=== PATIENT | female | born 1935 | race Two or more races ===

== ENCOUNTER 2018-11-28 11:59 | Observation (INO) | payer MEDICARE, OTHER ==
[~2018-11-28] VITALS: Ht 149.9 cm; Wt 42.4 kg
[2018-11-28] MEDS ORDERED: SYMBICORT 80-10.2 GM INH (12:43)
[2018-11-28] MEDS ORDERED: LEVOTHYROXINE75 MCG PO (12:44)
[2018-11-28] MEDS ORDERED: LOSARTAN-HCTZ1 EAC1 PO (12:44)
[2018-11-28] MEDS ORDERED: METOPROLOL SUCC50 MG PO (12:44)
[2018-11-28] MEDS ORDERED: ATROVENT HFA12.9 GM INH (17:30)
[2018-11-28] MEDS ORDERED: ASPIR-LOW81 MG PO (17:30)
--- NOTE | 2018-11-28 18:20 | NUR ---
PT TO FLOOR AT 1705 FOR ER VIA STRETCHER, ACCOMPANIED BY SHANA DAVIS. PT DENIES PAIN. REPORTS THAT SHE HAS HAD A LOW APETITE SINCE SHE GOT ILL APROXIMATELY 1 WEEK AGO, BUT DID EAT A SALAD AND DRINK TEA AND CHICKEN BROTH FOR DINNER. VOIDED 150 ML CLEAR YELLOW URINE IN HAT, DRIBBLED ON PAD IN UNDERWEAR. PAD CHANGED. PT AMBULATED WITH MINIMAL ASSIST TO AND FROM BATHROOM. IS UNSTEADY ON FEET.
--- NOTE | 2018-11-28 18:28 | NUR ---
PT TO FLOOR FROM ER THIS EVENING. PT IS ALERT, ORIENTED X 4. VOIDED 150 ML CLEAR YELLOW URINE IN HAT, SMALL AMOUNT INCONTINENCE IN PAD. PT SLIGHTLY UNSTEADY ON FEET, STANDBY TO MINIMAL ASSIST WHEN AMBULATING. DENIES PAIN. IS ON 2L O2 VIA NC, SATURATION LEVEL GREATER THAN 90%. HAS PRODUCTIVE COUGH, GREEN SPUTUM, AND LUNG CAMPBELL COARSE THROUGHOUT. HAS LR INFUSING AT 100 ML/HR.
--- NOTE | 2018-11-28 19:23 | NUR ---
RECIEVED REPORT FROM ROSAURA SALDANA. PATIENT LAYING AWAKE IN BED. IV FLUIDS INFUSING PER MAR ORDER. BED ALARM ON FOR ALEXIS. CALL LIGHT WITHIN REACH. NO MORE NEEDS AT THIS TIME. DROPLET PRECAUTIONS.
--- NOTE | 2018-11-28 21:41 | NUR ---
ASSESSMENT COMPLETE, REFER TO ASSESSMENT. PATIENT DENIES CHEST PAIN, SOB, OR DIFFICULTY BREATHING. IV FLUIDS INFUSING PER MAR ORDER. PATIENT EXHIBITED PRODUCTIVE COUGH, LIGHT YELLOW-LIGHT GREEN SPUTUM IN COLOR. ACAPELLA AT BEDSIDE, PATIENT DEMONOSTRATED UNDERSTANDING. PATIENT VERY DROWSY/SLEEPY DURING ASSESSMENT, REQUIRED ENCOURAGMENT TO AWAKE UP, HEAD OF BED ELEVATED. FRESH WATER PROVIDED TO PATIENT. PATIENT BECAME ALERT TO TAKE SCHEDULED MEDICATIONS. BED ALARM ON FOR SAFETY. PATIENT CALL LIGHT WITHIN REACH. PATIENT DENIES ANY NEEDS AT THIS TIME.
--- NOTE | 2018-11-28 21:43 | EKG ---
[facility] [address] [facility] [address] [place], [place] [address] Signed Poor data quality, interpretation may be adversely affected Normal sinus rhythm Nonspecific ST and T wave abnormality Abnormal ECG No previous ECGs available Confirmed by DIRK GALEANO DO ([id number]) on 11/28/2018 9:43:35 PM Electronically Signed By: DIRK GALEANO DO 11/28/18 2143 PATIENT NAME: CYNDIANABELLAADELINE NESS Electrocardiogram DATE OF : 37 PHYSICIAN: DIRK GALEANO DO REPORT #: [id number] REPORT IS CONFIDENTIAL AND NOT TO BE RELEASED WITHOUT AUTHORIZATION
--- NOTE | 2018-11-28 23:49 | NUR ---
ROUNDED ON PATIENT RESTING IN BED WITH EYES CLOSED, RESPIRATORY RATE IS EVEN AND UNLABORED. CALL LIGHT WITHIN REACH. IV FLUIDS INFUSING PER MAR ORDER. BED ALARM ON FOR SAFEY.
--- NOTE | 2018-11-29 02:20 | NUR ---
ASSESSMENT COMPLETE, REFER TO ASSESMENT. SBA PATIENT TO RESTROOM. PATIENT PRODUCING LIGHT YELLOW TO LIGHT GREEN, THICK SPUTUM. ACAPELLA AT BEDSIDE. PATIENT DENIES CHEST OR DIFFICULTY BREATHING. HOWEVER, PATIENT REPORTS SOB WITH EXTERTION, HOWEVER SOB RESOLVES AFTER REST. 1.5L VIA NC. BED ALARM ON FOR SAFETY. VITAL ASSESSED AND RECORDED. INTAKE AND OUTPUT ASSESSED AND RECORDED.
--- NOTE | 2018-11-29 02:59 | NUR ---
CHECKED ON IV ALARMING, PT COUGHING OFF AND ON, REQUESTED FRESH ICE WATER, RECEIVED. 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
--- NOTE | 2018-11-29 06:15 | NUR ---
ASSESSMENT COMPLETE, REFER TO ASSESSMENT. MEDICATION ADMINTERED PER MAR ORDER. PATIETN REPORTS PRODUCING THICK "CREAM" COLORED SPUTUM. IV FLUIDS INFUSING PER MAR ORDER. PATIENT REPORTS SOB WITH AMBULATION, NO SOB AT THIS TIME. PATIENT DENIES CHEST PAIN OR SOB. ACAPELLA AT BEDSIDE. BED ALARM ON FOR SAFETY. CALL LIGHT WITHIN REACH. NO MORE NEEDS AT THIS TIME.
--- NOTE | 2018-11-29 07:15 | NUR ---
PT IN BED AWAKE, ALERT. ON 1.5L O2 VIA NC. RECIEVED BEDSIDE REPORT FROM SHANA PHELPS.
--- NOTE | 2018-11-29 08:30 | NUR ---
Obtained BP and pulse prior to adminisration of morning meds. Pt was alert and oriented x3 and answers questions appropriately. Pt was in bed eating breakfast independently. Pt asked what her 02 sat level was and expressed concern about being taken off of 1.5 L O2. She stated "I don't want to get dependent on it." Told pt I would let RN know of her concern. RN aware.
--- NOTE | 2018-11-29 08:51 | NUR ---
PATIENT REFUSED TO GET UP TO HER CHAIR FOR BREAKFAST. SHE SAYS LATER SHE WOULD SHOWER LATER. WARM WASH CLOTH OFFERED.
--- NOTE | 2018-11-29 09:00 | NUR ---
Administered PO meds. Pt was able to swallow independently and without difficulty. O2 was turned off and pt was placed on RA. Pt appeared to be tolerating well and had an O2 sat of 93% on RA. Will continue to monitor O2 levels.
--- NOTE | 2018-11-29 09:11 | NUR ---
PT ATE 50% OF BREAKFAST, DRANK 340 ML FLUIDS WITH BREAKFAST. DENIED NAUSEA, DENIED PAIN. TITRATED OFF 1.5L O2 TO RA, OXYGEN SATURATION LEVEL 93%, WILL CONTINUE TO MONITOR.
--- NOTE | 2018-11-29 09:40 | NUR ---
Obtained VS. While in pt room, O2 sat dropped to 89%. RN was informed. Pt was put on 1 L O2. O2 sat was 93% on 1 L O2.
--- NOTE | 2018-11-29 09:53 | NUR ---
PT DESATURATED TO 89% ON RA, PLACED ON 1L O2 VIA NC, OXYGEN SATURATION LEVEL NOW 92% ON 1L O2.
--- NOTE | 2018-11-29 10:00 | NUR ---
Pt remains on 1 L O2 sat of 97%. No respiratory distress noted.
--- NOTE | 2018-11-29 10:06 | NUR ---
NITO, PHYSICAL THREAPIST, NOTIFIED THIS RN THAT SHE HAD CLEARED PT. NOTIFIED DR. BURNHAM. ALSO NOTIFIED DR. BURNHAM THAT PT STATED THAT HE WANTS TO DISCHARGE TO HOME TODAY. DR. BURNHAM STATED THAT HE WILL DISCHARGE PT TODAY.
--- NOTE | 2018-11-29 10:50 | NUR ---
Pt in chair reading. O2 sat of 98% on 1 L O2. Pt request lunch menue. Pt states no other needs at this time. Call light in reach.
--- NOTE | 2018-11-29 12:30 | NUR ---
PT IN BED. PROVIDED WITH FRESH ICE WATER. PT ON 1L O2 VIA NC, SAT 95%. PERSONAL SUPPLIES AND CALL LIGHT IN REACH.
--- NOTE | 2018-11-29 14:18 | NUR ---
Assisted pt to bathroom. Pt had weak, steady gait. Pt had unmeasurable loose stool. Work of breathing increased with ambulation. Pt had an O2 sat of 89% on room air for ambulation when returning to bed. O2 sat inreased to 99% on 1L O2. Call light in reach. Pt denies c/o.
--- NOTE | 2018-11-29 15:04 | NUR ---
DR. GALEANO IN TO ROUND ON PT. PT REPORTS HAVING LOOSE STOOLS X 4.
--- NOTE | 2018-11-29 16:35 | NUR ---
PT IN BED, RECIEVED ARMANDO TX FROM RT CARLOS. IV SALINE LOCKED AFTER MAGNESIUM IV INFUSION COMPLETE. PT HAS PERSONAL SUPPLIES AND CALL LIGHT IN REACH. DENIED NEEDS.
--- NOTE | 2018-11-29 17:16 | NUR ---
PT'S LUNG SOUNDS COARSE WITH WHEEZES THROUGHOUT. PT HAS A PRODUCTIVE COUGH. IS ON 1L O2 VIA NC TO MAINTAIN OXYGEN SATURATION LEVEL AT OR GREATER THAN 90%. SHORT OF BREATH WITH EXERTION. URINE OUTPUT QUANTITY SUFFICIENT. PT HAS HAD MULTIPLE LOOSE STOOLS, STARTED LOPERAMIDE. MAGNESIUM LEVEL 1.4, IV MAGNESIUM 3 GM GIVEN. IV NOW SALINE LOCKED. PT STARTED SCHEDULED NEB TX. UP WITH 1 PERSON STANDBY ASSIST. ALERT, ORIENTED X 4. NO C/O PAIN NOTED OR REPORTED.
--- NOTE | 2018-11-29 18:28 | NUR ---
PT ON 1L O2 VIA NC, OXYGEN SATURATION LEVEL 95%, TITRATED TO RA, SAT 92%. WILL CONTINUE TO MONITOR. PERSONAL SUPPLIES AND CALL LIGHT IN REACH. PT HAD CLEAR LIQUIDS FOR DINNER, STATED THAT SHE DID NOT WANT SOLIDS BECAUSE SHE HAD HAD LOOSE STOOLS THIS SHIFT. OFFERED CLEAR ENSURE, PT DECLINED.
--- NOTE | 2018-11-29 19:13 | NUR ---
RECIEVED CHANGE OF SHIFT REPORT FROM LIBIA SALDANA. PATIENT RESTING AWAKE IN BED. 0.5L VIA NC. NO SIGNS OF DISTRESS. WHITE BOARD UPDATED. SALINE LOCKED.
--- NOTE | 2018-11-30 05:17 | NUR ---
PATIENT SLEPT WELL THROUGHOUT THE NIGHT. O2 TITRATED VIA NC TO MAINTAIN O2 SATS PER ORDER. 1PERSON SBA. BED ALARM FOR SAFETY. ACAPELLA AT BEDSIDE. REGULAR DIET. PATIENT EXPERIENCES SOB WITH AMBULATION. SALINE LOCKED. SCHEDULED NEB TREATMENTS PER NOV ORDER. NO PRN PAIN MEDICATION THIS SHIFT.
--- NOTE | 2018-11-30 06:10 | NUR ---
ROUNDED ON PATIENT FOR MEDICATION ADMINISTRATION PER NOV ORDER. MED SPEC IN ROOM WITH PATIENT TO ASSIST PATIENT TO AMBULATE TO RESTROOM AT THIS TIME. NO MORE NEEDS AT THIS TIME.
--- NOTE | 2018-11-30 07:04 | NUR ---
Bedside report received from SHANA Peters. Pt resting supine in bed, a/o x4 and denies needs/concerns. pt currently satting 92% on 1lpnc and denies sob. RR 20, even and unlabored. Call light and h20 in reach.
--- NOTE | 2018-11-30 08:30 | NUR ---
PT was done with breakfast so tray was removed. 70% of meal eaten. PT reported that she was "scared to eat too much" due to several episodes of loose stool yesterday. She is resting in bed now with call light within reach. No complaints or concerns at this time.
--- NOTE | 2018-11-30 09:14 | NUR ---
PATIENT RESTING IN BED. VITAL SIGNS AND I&O DONE. CALL LIGHT WITHIN REACH. NO OTHER NEEDS AT THIS TIME
[2018-11-30] MEDS ORDERED: DOXAZOSIN MESYLA4 MG PO (09:33)
[2018-11-30] MEDS ORDERED: VENTOLIN HFA18 GM INH (09:34)
--- NOTE | 2018-11-30 09:34 | NUR ---
MED REC COMPLETE
--- NOTE | 2018-11-30 10:15 | NUR ---
PT RESTING SUPINE IN BED WATCHING TV, PT DENIES PAIN, NAUSEA OR SOB AND IS SATTING 97% ON ROOM AIR. PT ASSESSMENT COMPLETED. PT DENIES NEEDS OR CONCERNS AT THSI TIME. CALL LIGHT AND H20 IN REACH.
--- NOTE | 2018-11-30 11:22 | NUR ---
PT CALL LIGHT ALERTED. PT REQUESTED TO USE RESTROOM. ONE PERSON STANDY ASSIST TO TRANSFER OUT OF BED AND WALK TO THE BATHROOM AND BACK. TOLERATED ACTIVITY WELL. REPORTED NO DIZZINESS BUT WAS MILDLY TACHYPNIC AFTER RETURNING TO THE BED. 02 SATS DROPPED TO 86% BUT RETURNED TO 92 AFTER SEVERAL DEEP BREATHS. NO OTHER COMPLAINTS OR CONCERNS AT THIS TIME. CALL LIGHT IN REACH.
--- NOTE | 2018-11-30 12:02 | NUR ---
PT SITTING ON THE EDGE OF BED EATING LUNCH. VISITORS IN THE ROOM NOW. DENIES ANY NEEDS OR CONCERNS AT THIS TIME. CALL LIGHT AND WATER WITHIN REACH.
--- NOTE | 2018-11-30 12:59 | NUR ---
PT SITTING IN CHAIR, RM DARKENED, NO TV BUT PT WAS AWAKE. SHE IS VERY POLITE AND DOESNOT WANT TO FEEL LIKE SOMEONE IS HAVING TO FUSS OVER HER.I TUNED THE TV TO THE MUSIC CHANNEL-SHE WAS PLEASED.PT ALSO MENTIONED THAT SHE IS WORRIED ABOUT HER WHO IS AT [facility]. EXTENDED A BLESSING, WILL FOLLOW NEEDED
--- NOTE | 2018-11-30 14:51 | NUR ---
Pt up ambulating in fiore with P.T. and fww. Pt appears to be tolerating well. Respirations even and unlabored and pt's speech is clear.
--- NOTE | 2018-11-30 17:58 | NUR ---
PT is sitting supine in her bed. Assisted with redressing IV site. No phlebitis present. No other complaints at this time. Call light within reach.
--- NOTE | 2018-11-30 18:29 | NUR ---
SN Shift Summary: PT lung sounds crackles and expiratory wheezes throughout. No c/o SOB. PT O2 sats remained at 92 or above without oxygen all day. O2 sats dropped to 86 when ambulating to bathroom x2 but returned to 92 or above when resting. Cough was productive with small amounts of thick secretions. No episodes of urinary incontinence or loose stools today. Patient received a shower with standby assist and tolerated well. IV flushed with NS with no complications and was redressed with tape. No complaints of pain reported today. PT states that she was less weak and fatigued than yesterday. No further concerns at this time.
--- NOTE | 2018-11-30 18:44 | NUR ---
PT RESTING SUPINE IN BED, STATES SHE HAS HAD A GOOD APPETITE TODAY AND HAS TOLERATED HER MEALS WELL WITH NO NAUSEA, PT REMAINS SL'D AND DENIES SOB ON ROOM AIR WITH O2 SAT AT 95% AND RR 18. P TSTATES "I FEEL A LOT BETTER TODAY, WHAT TIME ARE DISCHARGES USUALLY?". PT INFORMED THAT DISCHARGE TIME VARY WIDELY BUT OFTEN LAND NEAR MIDDAY BETWEEN 10AM AND 2PM. PT STATES SHE STILL GETS SOME SHORTNESS OF BREATH WITH EXERTION BUT HAS TOLERATED ROOM AIR AT REST ALL DAY. PT DOES FEEL SHE COULD BENAFIT FROM A BREATHING TREATMENT AT THIS TIME THOUGH DENIES SOB. KAREY FROM RT NOTIFIED OF PT'S REQUEST. INTERMITTANT COUGH PERSISTS AND PT REMAINS ON DROPLET PRECAUTIONS. TODAY IS DAY TWO OF TAMIFLU TREATMENT. PT REMAINS SBA WITH FWW AND TOLERATED EXERCISE WITH PT TODAY.SCHEDULED NEB TX'S AND PRN AVAILABLE.
--- NOTE | 2018-11-30 19:05 | NUR ---
SHIFT REPORT RECEIVED FROM DAYSWAFT SHANA LOPEZ. PT RESTING IN BED, CPOX IN PLACE. PT ON RA, DENIES NEEDS. O2 SAT AND HR WNL. CALL LIGHT IN REACH.
--- NOTE | 2018-11-30 20:35 | NUR ---
THIS RN IN ROOM TO COMPLETE VS. BP RESULT OF 184/83, MAP 109 ON RIGHT ARM. BP RESULT OF 172/65, MAP 92 ON LEFT ARM. PT'S SBP FOR 1800 VS WAS IN 170'S. CPOX HR RESULT ANYWHERE BETWEEN 54-59. THIS RN COMPLETED APICAL PULSE, RESULT 57. PT DENIES DIZZINESS. DR GALEANO MADE AWARE OF ALL FINDINGS ABOVE. VERBAL ORDER READ BACK TO HOLD SCHEDULED METOPROLOL. AWAITING FOR DR GALEANO TO PUT IN NEW ORDERS FOR CARDURA. THIS RN ASKED ABOUT HOLDING PARAMETERS REGARDING CARDIAC MEDICATIONS.VERBAL ORDER READ BACK TO HOLD CARDURA FOR SBP<100 AND TO HOLD METOPROLOL FOR SBP<100 AND/OR HR<60.
--- NOTE | 2018-11-30 21:29 | NUR ---
RECHECKED B\P PER SHANA LICONA
--- NOTE | 2018-11-30 21:30 | NUR ---
VSS, SCHEDULED MEDICATIONS GIVEN (SEE EMAR). ASSESSMENT COMPLETE. PT A/OX3, DENIES PAIN. PT DENIES DIZZINESS. LUNG SOUNDS COURSE, PT USING ACAPELLA AT THIS TIME. O2 SAT WNL, PT ON RA. PT REPORTS THAT CREAM COLORED SPUTUM IS "GETTING BETTER AND IS THINNER". PT UP SBA TO BATHROOM TO VOID. PT RETURNED TO BED, DENIES FURTHER NEEDS. CALL LIGHT IN REACH.
--- NOTE | 2018-11-30 22:10 | NUR ---
O2 ALARM GOING OFF, PT ON RA. O2 SAT 88-89%. WHEN AWAKE, PT CAN BE EASILY INSTRUCTED TO BREATH THROUGH NOSE AND O2 SAT WILL RETURN TO NORMAL. PT IS ATTEMPTING TO FALL ASLEEP, THIS RN PLACED PT ON 0.5LNC, O2 SAT MAINTAINING IN LOW TO MID 90%'S. WILL CONTINUE TO MONITOR. NO FURTHER NEEDS, CALL LIGHT IN REACH.
--- NOTE | 2018-11-30 23:30 | NUR ---
PT RESTING IN BED, EYES CLOSED, RR EVEN AND UNLABORED. PT APPEARS COMFORTABLE, NO SIGNS OF RESPIRATORY DISTRESS. CALL LIGHT IN REACH.
--- NOTE | 2018-12-01 02:00 | NUR ---
ASSESSMENT COMPLETE. NO NEW CONCERNS. MANUAL BP RESULT OF 168/56. PT A/OX4, DENIES PAIN. PT STATES, "I FEEL OKAY. I DON'T NEED ANYTHING". PT DENIES SOB AND CHEST PAIN. PT ON 1LNC, O2 SAT IN UPPER 90'S, PT TITRATED TO RA. WILL MONITOR. FRESH WATER AT BEDSIDE. NO FURTHER NEEDS, CALL LIGHT IN REACH.
--- NOTE | 2018-12-01 02:56 | NUR ---
pt on ra, o2 sat 88-89%. pt placed on 0.5lnc. no further needs, call light in reach.
--- NOTE | 2018-12-01 04:29 | NUR ---
PT HAD A GOOD NIGHT, SLEPT FOR MOST OF THE SHIFT. PT A/OX4 AND DENIED PAIN ALL SHIFT. SBP TRENDING UP, MD AWARE. SCHEDULED METOPROLOL HELD FOR HR 57, CARDURA ADDED FOR ELEVATED BP. PT REQUIRED 0.5L NC TO MAINTAIN O2 SAT >90% WHEN ASLEEP. PT ON REGULAR DIET, TOLERATING WELL, NO NASUEA THIS SHIFT. PT VOIDING QS. SBA W/ AMBULATION. PT SL. USES CALL LIGHT APPROPERAITELY.
--- NOTE | 2018-12-01 06:12 | NUR ---
VITALS AND I&OS DONE AND CHARTED.FRESH WATER GIVEN. TOOTHBRUSH AND WARM WATER GIVEN PER PT REQUEST. EMPTIED GARBAGES. BEDSIDE TABLE AND CALL LIGHT IN REACH. INFORMED HER RN MONAE OF B\P. PT NEEDS NOTHING MORE AT THIS TIME.
--- NOTE | 2018-12-01 07:00 | NUR ---
THIS RN NOTICED THAT WHEN DR GALEANO PUT IN ORDER FOR PT'S CARDURA, IT WAS PUT IN 4MG BID. IT APPEARS THAT PT'S HOME DOSE CARDURA IS 2MG BID. SENIOR TECHNICAL TRAINER NENO MADE AWARE DURING THE NIGHT. INSTRUCTED THAT IT WOULD BE OKAY TO WAIT UNTIL MORNING TO CALL DR GALEANO. AT SHIFT CHANGE, DAYSHIFT SHANA LOPEZ ALSO MADE AWARE AND HE STATED, "I WILL CALL DR GALEANO BEFORE THE NEXT DOSE AND ASK FOR CLARIFICATION".
--- NOTE | 2018-12-01 08:38 | NUR ---
PT ASSISTED TO THE RESTROOM WITH MINIMAL STANDY ASSIST. TOLERATED WELL. REPORTED MILD SOB DURING ACTIVITY. OX SAT 92 WHEN MOVED TO CHAIR. 0.5LPM VIA NC APPLIED. OX SATS NOW 97. PT WAS ABLE TO COUGH THICK WHITE SECRETION. REPORTED THAT WEAKNESSES IS LESS TODAY AND COUGH IS MORE PRODUCTIVE. LOTION APPLIED TO LOWER EXTREMITIES PER PT REQUEST. PT ATE 40% OF BREAKFAST AND REPORTED THAT SHE WAS NERVOUS TO EAT TOO MUCH DUE TO EPISODES OF LOOSE STOOL ON 11/29. NO NAUSEA OR PAIN REPORTED TODAY. CALL LIGHT AND WATER WITHIN REACH. NO OTHER CONCERNS AT THIS TIME.
--- NOTE | 2018-12-01 09:35 | NUR ---
pt sitting up in chair, assessment completed and am medications administered. pt states "I feel better". Pt denies having any sob or nausea and tolerated about half of her breakfast. Call light and h20 in reach. no further needs or concerns voiced. MD in to see patient and discusses discharge plan.
[2018-12-01] MEDS ORDERED: OSELTAMIVIR PHO30 MG PO (09:52)
[2018-12-01] MEDS ORDERED: PREDNISONE20 MG PO (09:54)
--- NOTE | 2018-12-01 12:40 | NUR ---
PT REQUESTED I LET DR GALEANO KNOW SHE WANTED HIM TO CONTACT HER DAUGHTER IN [place]. I NOTIFIED HIM AND HE SAID HE WOULD BE HAPPY TO. PT TO BE DC'D TODAY, WILL FOLLOW NEEDED
== END 2018-12-01 13:18 | disposition home or self-care (01) ==
LOC: ED 11:59 → MS 12:00
PROVIDERS: ADMIT Student in an Organized Health Care Education/Training Program
DX: J10.1 Influenza due to other identified influenza virus with other respiratory manifestations (principal); J96.91 Respiratory failure, unspecified with hypoxia; I10 Essential (primary) hypertension; I25.10 Atherosclerotic heart disease of native coronary artery without angina pectoris; E03.9 Hypothyroidism, unspecified; R19.7 Diarrhea, unspecified; Z66 Do not resuscitate; Z79.82 Long term (current) use of aspirin; Z79.51 Long term (current) use of inhaled steroids; Z79.899 Other long term (current) drug therapy
CPT/HCPCS: 36415; 71045; 80048; 80053; 82803; 83605; 83735; 83880; 85025; 93005; 93010; 94640; 94667; 94668; 96361; 96365; 96367; 96372; 96375; 97116; 97162; 97165; 99284-25; G0378; J0696; J1650; J2405; J2930; J3475; J7120; J7512

== ENCOUNTER 2020-11-22 10:09 | Emergency (ER) | payer MEDICARE, OTHER ==
[~2020-11-22] VITALS: Ht 149.9 cm; Wt 49.9 kg
[~2020-11-22 10:09] MED LIST: ASPIR-LOW81 MG PO; ATROVENT HFA12.9 GM INH; DOXAZOSIN MESYLA4 MG PO; LEVOTHYROXINE75 MCG PO; LOSARTAN-HCTZ1 EAC1 PO; METOPROLOL SUCC50 MG PO; OSELTAMIVIR PHO30 MG PO; PREDNISONE20 MG PO; SYMBICORT 80-10.2 GM INH; VENTOLIN HFA18 GM INH
[2020-11-22] MEDS ORDERED: SYMBICORT 16010.2 GM INH (10:34)
[2020-11-22] MEDS ORDERED: ALENDRONATE SOD35 MG PO (10:34)
[2020-11-22] MEDS ORDERED: VENTOLIN HFA18 GM INH (10:35)
[2020-11-22] MEDS ORDERED: COZAAR100 MG PO (13:31)
--- NOTE | 2020-11-22 15:51 | EKG ---
[facility] [address] [facility] [place] [address] Signed Normal sinus rhythm with sinus arrhythmia Nonspecific T wave abnormality Abnormal ECG When compared with ECG of 28-NOV-2018 12:21, Nonspecific T wave abnormality no longer evident in Lateral leads Confirmed by DIRK GALEANO DO ([id number]) on 11/22/2020 3:51:30 PM Electronically Signed By: DIRK GALEANO DO 11/22/20 1551 PATIENT NAME: ANABELLA HANNA Electrocardiogram DATE OF : 37 PHYSICIAN: DIRK GALEANO DO REPORT #: [id number] REPORT IS CONFIDENTIAL AND NOT TO BE RELEASED WITHOUT AUTHORIZATION
== END 2020-11-22 13:45 | disposition home or self-care (01) ==
LOC: ED 10:09
DX: E87.1 Hypo-osmolality and hyponatremia (principal); R10.11 Right upper quadrant pain; I10 Essential (primary) hypertension; J44.9 Chronic obstructive pulmonary disease, unspecified; Z88.5 Allergy status to narcotic agent; Z79.899 Other long term (current) drug therapy
CPT/HCPCS: 71045; 76705; 80053; 81001; 83690; 84484; 85025; 93005; 93010; 99284-25